=== PATIENT | male | born 2000 | race Caucasian/White ===

== ENCOUNTER 2019-10-07 10:43 | Emergency (ER) | payer OTHER, SELFPAY ==
[2019-10-07 10:48] VITALS: BP 115/66; PULSE 69; RESP 20; TEMP 36.6; O2SAT 99; BMI 23.0
[2019-10-07 10:56] VITALS: BP 115/66; PULSE 69; RESP 20; TEMP 36.6; O2SAT 99; BMI 23.7
--- NOTE | 2019-10-07 11:59 | HMH.EDUTC ---
[facility] [place] Disposition Clinical Impression: Need for Tdap vaccination Laceration of left hand Qualifiers: Encounter type: initial encounter Foreign body presence: without foreign body Qualified Code(s): S61.412A - Laceration without foreign body of left hand, initial encounter Disposition: Home, Self-Care Condition on Discharge: Good Instructions: How to Care for a Laceration After Repair, DI for Laceration Repair -- Complex, Tetanus, Diphtheria, Pertussis (Tdap) Vaccine Additional Instructions: Keep the wound clean and dry. Keep a dressing on it if you are going to be getting it dirty. Watch the for signs of infection, such as redness, swelling, drainage, fever. etc. take tylenol or ibuprofen for pain. Follow up with her regular doctor. Return in 7 to 10 days to have the sutures removed. GO TO THE ER FOR ANY WORSENING SYMPTOMS OR CONCERNS. Prescriptions: cephALEXin [Keflex 500mg Cap] 500 mg PO Q6H 7 Days #28 cap Transmission Status: Received by [facility]PO #[id number] Referrals: Lukas Oglesby MD [Primary Care Provider] - Forms: Work/School Release Time of Disposition: 12:03 Medical Decision Making - Medical Records Medical records reviewed: No: I reviewed the patient's medical records. - Edgar Inquiry Pt receiving controlled substance: No Vital Signs: 10/07/19 10:48 10/07/19 10:56 10/07/19 12:05 Temperature 98 F 98 F 98 F Temperature Source Oral Oral Oral Pulse Rate 69 Pulse Rate [Right] 69 69 Respiratory Rate 20 20 20 Blood Pressure 115/66 Blood Pressure [Right Arm] 115/66 115/66 Blood Pressure Mean [Right Arm] 82 82 Blood Pressure Source Automatic Cuff Blood Pressure Source [Right Arm] Automatic Cuff Blood Pressure Position Sitting Blood Pressure Position [Right Arm] Sitting 02 Sat by Pulse Oximetry 99 99 Oxygen Delivery Method Room Air Room Air Orders (Tests/Meds): ED MEDICATIONS Discontinued Medications Generic Name Dose Route Start Last Admin Trade Name Freq PRN Reason Stop Dose Admin Lidocaine HCl 5 ml 10/07/19 11:03 10/07/19 11:09 Lidocaine 1% 10ml Mdv SQ 10/07/19 11:04 5 ml ONCE ONE Administration Neomycin/Polymyxin/Bacitracin 1 each 10/07/19 11:04 10/07/19 11:10 Neosporin Ointment 0.9gm Udp TP 10/07/19 11:05 1 each ONCE ONE Administration Tetanus/Reduced Diphtheria/Acell Pertussis 0.5 ml 10/07/19 11:01 10/07/19 11:08 Adacel Tdap 0.5ml Syringe IM 10/07/19 11:02 0.5 ml .ONCE ONE Administration [facility] [place] HPI - General Stated complaint: cut finger AO 1030 Time Seen by Provider: 10/07/19 11:00 Mode of Arrival: Family Vehicle Source of Information: Patient Limitations: No Limitations Description of Symptoms (Recalled from Triage Doc. by RN): Laceration to left pointer finger from metal on a truck, states TDAP is not UTD. HEENT Symptoms (Recalled from RN notes): No Resp Symptoms (Recalled from RN notes): No Skin Symptoms (Recalled from RN notes): Yes MS Symptoms (Recalled from RN notes): No Functional Status (Recalled from RN notes): n/a - History of Present Illness Provider Complaint: He was working in his garage this morning when he bumped his left hand into a sharp piece of aluminum sheeting. He has a laceration on the dorsal aspect of his left hand at the base of his index finger. His tetanus immunization is not up to date. - Related Data Previous Rx's Medication Instructions Recorded cephALEXin [Keflex 500mg Cap] 500 mg PO Q6H 7 Days #28 cap 10/07/19 Allergies Allergy/AdvReac Type Severity Reaction Status Date / Time No Known Allergies Allergy Verified 06/21/18 19:35 - Worker's Comp Is this a Worker's Comp case?: No [facility] History - Hepatitis A Screen Drug use history?: No High risk sexual behaviors?: No History of sexually transmitted infection?: No Currently employed?: No Childcare worker?: No Do you have indoor plumbing?: Yes Do you have electricity?: Yes Mendy
[2019-10-07 12:05] VITALS: BP 115/66; PULSE 69; RESP 20; TEMP 36.6; O2SAT 99
== END 2019-10-07 12:12 | disposition home or self-care (01) ==
PROVIDERS: Emergency Provider Nurse Practitioner Family; PCP Family Medicine
DX: S61.412A Laceration without foreign body of left hand, initial encounter (principal); W26.8XXA Contact with other sharp object(s), not elsewhere classified, initial encounter; Y92.015 Private garage of single-family (private) house as the place of occurrence of the external cause; Z23 Encounter for immunization
CPT/HCPCS: 12001; 90471; 90715; 99201

== ENCOUNTER 2020-06-19 10:15 | Emergency (ER) | payer OTHER, SELFPAY ==
[2020-06-19 10:39] VITALS: BP 114/62; PULSE 66; RESP 17; TEMP 37; O2SAT 100; BMI 23.0
--- NOTE | 2020-06-19 11:02 | HMH.EDUTC ---
[facility] [place] Disposition Clinical Impression: Exposure to COVID-19 virus Disposition: Home, Self-Care Condition on Discharge: Good Instructions: Preventing the Spread of Coronavirus Discharge Instructions Additional Instructions: Drink plenty of fluids. Take tylenol for pain or fever. Follow up with your regular doctor. GO TO THE ER FOR ANY WORSENING SYMPTOMS Referrals: Lukas Oglesby MD [Primary Care Provider] - Time of Disposition: 11:05 Medical Decision Making - Medical Records Medical records reviewed: No: I reviewed the patient's medical records. - Edgar Inquiry Pt receiving controlled substance: No Vital Signs: 06/19/20 10:39 06/19/20 11:11 Temperature 98.6 F 98.6 F Temperature Source Oral Pulse Rate 93 H Pulse Rate [Left] 66 Respiratory Rate 17 19 Blood Pressure 137/91 H Blood Pressure [Right Arm] 114/62 Blood Pressure Mean [Right Arm] 79 Blood Pressure Source [Right Arm] Automatic Cuff Blood Pressure Position [Right Arm] Sitting 02 Sat by Pulse Oximetry 100 Oxygen Delivery Method Room Air Orders (Tests/Meds): ORDERS Category Date Time Status Covid-19 Nasal PCR Sendout [facility] 06/19/20 10:16 Received [facility] [place] HPI - General Stated complaint: covid exposure Time Seen by Provider: 06/19/20 11:02 Mode of Arrival: Ambulatory Source of Information: Patient Limitations: No Limitations Description of Symptoms (Recalled from Triage Doc. by RN): Covid test exposure no symptoms HEENT Symptoms (Recalled from RN notes): No Resp Symptoms (Recalled from RN notes): No Skin Symptoms (Recalled from RN notes): No MS Symptoms (Recalled from RN notes): No Functional Status (Recalled from RN notes): wnl - History of Present Illness Provider Complaint: His has covid. He denies any symptoms. - Related Data Home Medications Medication Instructions Recorded Confirmed No Known Home Medications 06/19/20 06/19/20 Allergies Allergy/AdvReac Type Severity Reaction Status Date / Time No Known Allergies Allergy Verified 06/21/18 19:35 - Worker's Comp Is this a Worker's Comp case?: No Is this an H Worker's Comp?: No Is this a [place] Worker's Comp?: No [facility] History - Hepatitis A Screen Drug use history?: No High risk sexual behaviors?: No History of sexually transmitted infection?: No Currently employed?: No Childcare worker?: No Do you have indoor plumbing?: No Do you have electricity?: No Attestation statement:: This patient has been screened for Hepatitis A risk factors. I have reviewed the patient's past medical history: Yes Medical History: Denies:: Cancer, Diabetes Mellitus Type 1, Diabetes Mellitus Type 2, MRSA Amputation: No Fractures: No - Social History Smoking Status: Never smoker Alcohol Intake: never Occupational Status: other ROS Obtained: Yes All systems reviewed & no additional complaints - Constitutional Constitutional: Reports system reviewed and no additional complaints, except as docu - Eyes Eyes: Reports system reviewed and no additional complaints, except as docu - ENT Ears, Nose, Mouth, and Throat: Reports system reviewed and no additional complaints, except as docu - Cardiovascular Cardiovascular: Reports system reviewed and no additional complaints, except as docu - Respiratory Respiratory: Yes system reviewed and no additional complaints, except as docu - Gastrointestinal Gastrointestingal: Reports: system reviewed and no additional complaints, except as docu Physical Exam - General General appearance: alert, in no apparent distress - Head Head exam: atraumatic, normocephalic, normal inspection - Eye Eye exam: Present: normal appearance, PERRL, EOMI - ENT ENT exam: Present: normal exam, normal oropharynx, mucous membranes moist, TM's normal bilaterally, normal external ear exam - Neck Neck exam: Present: normal inspection, full ROM, trachea midline. Absent: meningismus, lymphadenopathy
[2020-06-19 11:11] VITALS: BP 137/91; PULSE 93; RESP 19; TEMP 37; O2SAT 98
[2020-06-20 10:10] LABS: Covid-19 Nasal PCR Sendout P&C Negative
== END 2020-06-19 11:12 | disposition home or self-care (01) ==
PROVIDERS: Emergency Provider Nurse Practitioner Family; PCP Family Medicine
DX: Z20.828 Contact with and (suspected) exposure to other viral communicable diseases (principal)
CPT/HCPCS: 99201; U0004

== ENCOUNTER → 2022-09-27 09:22 | Outpatient (CLI) | payer BC, SELFPAY ==
[2022-09-27 11:53] LABS: PH,Semen 8.5 (7.3-8.3); Semen Viscosity Stringy (Normal); Volume,Semen 3.5 ml (2.0-5.0); WBCs,Semen Negative
[2022-09-27 11:54] LABS: 3Hr Motility Quality Good Progression (Mod-Rapid); 3Hr Sperm Motility 70 % (50-60); Motility Quality Rapid Progression (Mod-Rapid); Sperm Count 25 mil/mm3 (20-160); Sperm Morphology N (Normal); Sperm Motility 80 % (50-90)
== END ==
PROVIDERS: PCP Family Medicine; Visit Provider Obstetrics & Gynecology
DX: Z31.41 Encounter for fertility testing (principal)
CPT/HCPCS: 89320

== ENCOUNTER 2024-12-02 15:56 | Outpatient (CLI) | payer BC, SELFPAY | END 2024-12-02 23:59 | disposition home or self-care (01) | LOC: LAB.DROPOF 22:22 | PROVIDERS: PCP Internal Medicine; Visit Provider Internal Medicine | DX: J02.9 Acute pharyngitis, unspecified (principal); R05.8 Other specified cough; S10.12XA Blister (nonthermal) of throat, initial encounter; X58.XXXA Exposure to other specified factors, initial encounter | CPT/HCPCS: 87070 ==